=== PATIENT | male | born 1985 | race Caucasian/White ===

== ENCOUNTER 2016-12-20 17:17 | Emergency (ER) | payer OTHER ==
[~2016-12-20] VITALS: Ht 198.1 cm; Wt 166.0 kg
[~2016-12-20 17:17] MED LIST: AUGM875T PO; CIPR500T2 PO; IBUP1TAB7 PO; METR-1 PO; TRAM50TA PO
[2016-12-20 17:33] VITALS: BP 147/79; PULSE 86; RESP 16; TEMP 98.1; O2SAT 100
[2016-12-20] MEDS ORDERED: ASPI1POW8 (17:52)
[2016-12-20] MEDS ORDERED: NAPROXEN 500 MG TAB PO ONE (18:00)
--- NOTE | 2016-12-20 18:17 | PD ---
HPI Chief Complaint: Edema Time Seen by Provider: 17:42 Travel History International Travel<30 days: No Contact w/Intl Traveler<30days: No Traveled to known affect area: No History of Present Illness HPI This is a 31-year-old male who presents to the emergency department having dropped a large can at work on his right foot 5 days ago. The can hit his ankle and he's had severe ankle pain, constant, worse with walking, improved with rest associated with bruising and swelling. He feels like the bruising is getting worse and the pain is getting worse. He denies any numbness or weakness. He is not on any blood thinners. PFSH Past Medical History Medical History: Denies Significant Hx Diminished Hearing: No Immunizations Current: Yes Tetanus Vaccination: < 5 Years Influenza Vaccination: No Past Surgical History Surgical History: No Previous Surgery Social History Alcohol Use: Yes (OCC.) Tobacco Use: No Substance Use: No Allergies-Medications (Allergen,Severity, Reaction): Coded Allergies: No Known Allergies (Verified Adverse Reaction, Unknown, 12/20/16) Reported Meds & Prescriptions Reported Meds & Active Scripts Active Naproxen 500 Mg Tab 500 Mg PO BID PRN Reported Bc Fast Pain Relief Powder (Aspirin-Caffeine Powder) 845-65 Mg Powderpack Ibuprofen 800 Mg Tab 800 Mg PO Q8H PRN Review of Systems Except as stated in HPI: all other systems reviewed are Neg Physical Exam Narrative GENERAL: Well-appearing, no acute distress, nontoxic SKIN: Ecchymoses over the medial aspect of the right ankle HEAD: Atraumatic. Normocephalic. ENT: No nasal bleeding or discharge. Moist mucous membranes MUSCULOSKELETAL: Tender to palpation over the medial malleolus of the right ankle and over the distal right tibia with soft compartments of the leg. Vascular: 2+ right DP pulse with normal capillary refill. NEUROLOGICAL: Awake and alert. No obvious cranial nerve deficits. Motor grossly within normal limits. Normal speech. PSYCHIATRIC: Appropriate mood and affect; insight and judgment normal. Data Data Last Documented VS Vital Signs Date Time Temp Pulse Resp B/P (MAP) Pulse Ox O2 Delivery O2 Flow Rate FiO2 12/20/16 17:33 98.1 86 16 147/79 (101) 100 Orders Orders Ankle, Complete ([id number]) (12/20/16 ) Naproxen (Naprosyn) (12/20/16 18:00) Ancelmo Bandage (12/20/16 18:47) [facility] Medical Decision Making Medical Screen Exam Complete: Yes Emergency Medical Condition: Yes Interpretation(s) Afebrile, no tachycardia, hypertensive Differential Diagnosis Contusion, sprain, fibular fracture, tibia fracture, compartment syndrome Narrative Course This is a 31-year-old male who presents to the emergency department having pain in his right leg that's been going on for 5 days ever since he had a large can fall on his leg. He's been walking on it for the past several days. He has bruising but is neurovascularly intact and all compartments are soft on exam. X -ray was obtained which demonstrates no obvious fracture. I suspect the patient has a severe contusion. He will be given an Ancelmo wrap, and was instructed to elevate and rest the leg. Patient will be discharged home. He can follow-up with podiatry as needed. Diagnosis Primary Impression: Contusion Qualified Codes: S90.01XA - Contusion of right ankle, initial encounter Patient Instructions: General Instructions Additional Instructions: If you develop numbness, weakness, severe pain, tingling or coolness of your foot return to the emergency room. Ancelmo wrap and elevate your foot to decrease the swelling. Take anti-inflammatories as needed. Follow-up with podiatry if you're not improved in one week. Med/Other Pt SpecificInfo: Prescription(s) given Scripts Naproxen (Naproxen) 500 Mg Tab 500 MG PO BID Y for PAIN SCALE 4 TO 10, #20 TAB 0 Refills Prov: Ida Vicente MD 12/20/16 Disposition: 01 DISCHARGE HOME Condition: Stable Ida Vicente MD Dec 20, 2016 18:17
--- NOTE | 2016-12-20 18:46 | RADRPT ---
EXAM DATE/TIME: 12/20/2016 18:27 [facility] COMPARISON: No previous studies available for comparison. INDICATIONS : Right ankle swelling, bruising, and pain for 5 days. A box fell on the right ankle. MEDICAL HISTORY : None. SURGICAL HISTORY : None. ENCOUNTER: Initial ACUITY: 4 - 6 days PAIN SCORE: 10/10 LOCATION: Right ankle. FINDINGS: Three view exam was performed of the right ankle. The bony structures are in normal alignment. No e vidence of fracture or dislocation. There is some mild, diffuse soft tissue prominence. The ankle mo rtise is intact. No radiopaque foreign bodies are seen. Bony mineralization is normal. CONCLUSION: Soft tissue swelling with no fracture Craig David MD on December 20, 2016 at 18:43 Board Certified Radiologist. This report was verified electronically.
[2016-12-20] MEDS ORDERED: NAPR500T2 PO (18:47)
[2016-12-20 19:11] VITALS: BP 148/78
== END 2016-12-20 19:15 | disposition home or self-care (01) ==
LOC: PHED 17:17
DX: S90.01XA Contusion of right ankle, initial encounter (principal); W22.8XXA Striking against or struck by other objects, initial encounter
CPT/HCPCS: 73610; 99283